=== PATIENT | female | born 1970 | race American Indian/Alaskan Native ===

== ENCOUNTER 2016-12-03 15:11 | Emergency (ER) | payer MEDICAID ==
[2016-12-03 22:01] LABS: Basophils % (Auto) 0.5 % (0.0-1.8); Eosinophils % (Auto) 1.6 % (0.0-4.3); Hemoglobin 11.8 gm/dl (10.1-14.3); Mean Corpuscular HGB Conc 33 % (30-34); Mean Corpuscular Hemoglobin 27 pg (28-32); Mean Corpuscular Volume 82 fl (79-97); Platelet Count 226 K/mm3 (140-440); Red Blood Count 4.39 M/mm3 (3.65-5.03); Red Cell Distribution Width 15.5 % (13.2-15.2); White Blood Count 5.4 K/mm3 (4.5-11.0)
[2016-12-03 22:23] LABS: Anion Gap 18 mmol/L; BUN/Creatinine Ratio 17.14; Blood Urea Nitrogen 12 mg/dL (7-17); Calcium 8.7 mg/dL (8.4-10.2); Carbon Dioxide 25 mmol/L (22-30); Chloride 100.9 mmol/L (98-107); Glucose 90 mg/dL (65-100); Potassium 3.9 mmol/L (3.6-5.0); Sodium 140 mmol/L (137-145)
[2016-12-04] MEDS ORDERED: DELTASONE PO ONE (02:01)
[2016-12-04] MEDS ORDERED: DUONEB 0.5 MG-3 MG/3 ML SOLN IH ONE (02:01)
--- NOTE | 2016-12-04 02:03 | Emergency Department Report ---
[id number]/ 01:54 - HPI HPI: This is a 46-year-old Afro-[place] female presents to the emergency department with complaint of some shortness of breath, wheezing that occurred earlier today while she was out walking around. She felt as if she might pass out but that her symptoms improved. She does have a history of asthma but has not used an inhaler for a few months that she ran out of it. She denies any chest pain, nausea, vomiting, fever, back pain or diaphoresis. She does not currently have a primary care doctor. She denies tobacco abuse or illicit drug use or abuse. She is not taking anything for symptoms prior to presentation. ED Review of Systems ROS: Stated complaint: SOB Other details as noted in HPI Comment: All other systems reviewed and negative Constitutional: denies: chills, fever Eyes: denies: eye pain, eye discharge, vision change ENT: denies: ear pain, throat pain Respiratory: shortness of breath, wheezing Cardiovascular: denies: chest pain, edema Gastrointestinal: denies: abdominal pain, nausea, diarrhea Genitourinary: denies: urgency, dysuria, discharge Musculoskeletal: denies: back pain, joint swelling, arthralgia Skin: denies: rash, lesions Neurological: denies: headache, weakness, paresthesias Physical Exam - Physical Exam Vital Signs: Vital Signs 12/03/16 12/03/16 12/04/16 15:19 21:09 01:17 Temperature 98.8 F 98.6 F 98.2 F Pulse Rate 97 H 87 72 Respiratory 18 20 18 Rate Blood Pressure 138/91 Blood Pressure 131/91 141/82 [Right] O2 Sat by Pulse 100 100 98 Oximetry Physical Exam: GENERAL: The patient is well-developed well-nourished. HEENT: Normocephalic. Atraumatic. Extraocular motions are intact. Patient has moist mucous membranes. Pupils equal reactive to light bilaterally. NECK: Supple. Trachea is midline. CHEST/LUNGS: Mild expiratory wheezing. No cough heard during examination. No tachypnea or accessory muscle use. There is no respiratory distress noted. HEART/CARDIOVASCULAR: Regular. There is no tachycardia. There is no gallop rub or murmur. ABDOMEN: Abdomen is soft, nontender. Patient has normal bowel sounds. There is no abdominal distention. SKIN: There is no rash. There is no diaphoresis. NEURO: The patient is awake, alert, and oriented. The patient is cooperative. The patient has no focal neurologic deficits. The patient has normal speech. MUSCULOSKELETAL: There is no tenderness or deformity. There is no limitation range of motion. There is no evidence of acute injury. ED Course Vital Signs 12/03/16 12/03/16 12/04/16 15:19 21:09 01:17 Temperature 98.8 F 98.6 F 98.2 F Pulse Rate 97 H 87 72 Respiratory 18 20 18 Rate Blood Pressure 138/91 Blood Pressure 131/91 141/82 [Right] O2 Sat by Pulse 100 100 98 Oximetry ED Medical Decision Making - Lab Data Result diagrams: 12/03/16 21:34 12/03/16 21:34 - EKG Data -: EKG Interpreted by Me EKG shows normal: sinus rhythm (with marked sinus arrhythmia), axis, intervals, QRS complexes, ST-T waves Rate: normal - EKG Data When compared to previous EKG there are: previous EKG unavailable Interpretation: normal EKG - Radiology Data Radiology results: image reviewed interpreted by me: Chest x-ray did not show any acute process. Heart is normal shape and size. No effusions. No pneumothorax. No signs of pneumonia seen. - Medical Decision Making 46-year-old female presents emergency Department with some shortness of breath and/or wheezing that occurred earlier today. The symptoms improved prior to presentation. Patient was in the emergency department for many hours and has remained stable. EKG did not show any signs of ST elevation ID, ischemia or dysrhythmia. Chest x-ray did not show any pneumonia, pleural effusions or any acute process. Patient's labs have been unremarkable thus far. The plan was to give the patient some steroids, breathing treatments and home with prescriptions for the same. However eventually the patient eloped without any prescriptions or discharge paperwork. - Differential Diagnosis asthma, bronchitis, pneumonia, CHF Critical Care Time: No Critical care attestation.: If time is entered above; I have spent that time in minutes in the direct care of this critically ill patient, excluding procedure time. ED Disposition Clinical Impression: Asthma exacerbation, Bronchospasm Disposition: ELOPED Is pt being admited?: No Condition: Stable Referrals: PRIMARY CARE, [Primary Care Provider] - 3-5 Days Time of Disposition: 05:32
[2016-12-04 04:48] VITALS: BP 132/68
--- NOTE | 2016-12-04 07:28 | XRay Report ---
ROUTINE CHEST, TWO VIEWS: HISTORY: Shortness of breath. The trachea, heart, mediastinal contour, lung gates and bony thorax are unremarkable. IMPRESSION: Unremarkable chest x-ray.
--- NOTE | 2016-12-04 19:05 | ED Elopement Review ---
ED Pt Elopement review - Results review Lab results: Laboratory Tests 12/03/16 12/03/16 21:34 21:34 WBC 5.4 RBC 4.39 Hgb 11.8 Hct 36.0 MCV 82 MCH 27 L MCHC 33 RDW 15.5 H Plt Count 226 Lymph % (Auto) 31.3 Titus % (Auto) 9.5 H Eos % (Auto) 1.6 Baso % (Auto) 0.5 Lymph # 1.7 Titus # 0.5 Eos # 0.1 Baso # 0.0 Seg Neutrophils % 57.1 Seg Neutrophils # 3.1 Sodium 140 Potassium 3.9 Chloride 100.9 Carbon Dioxide 25 Anion Gap 18 BUN 12 Creatinine 0.7 Estimated GFR > 60 BUN/Creatinine Ratio 17.14 Glucose 90 Calcium 8.7 Troponin T < 0.010 - Call Back decision Pt Call Back Decision: Pt to F/U with PMD
== END 2016-12-04 02:00 | disposition left against medical advice (07) ==
LOC: ED 15:11
DX: J45.901 Unspecified asthma with (acute) exacerbation (principal)
CPT/HCPCS: 36415; 71020; 80048; 84484; 85025; 93005; 93010; 99284